=== PATIENT | female | born 1955 | race Caucasian/White ===

== ENCOUNTER 2016-06-14 23:30 | Emergency (ER) | payer OTHER ==
[~2016-06-14] VITALS: Ht 167.6 cm; Wt 99.0 kg
[2016-06-14 23:31] VITALS: BP 121/68; PULSE 68; RESP 16; TEMP 98.7; O2SAT 95
[2016-06-14] MEDS ORDERED: TIZA4CAP3 PO (23:42)
[2016-06-14] MEDS ORDERED: IBUP800T23 PO (23:42)
[2016-06-14] MEDS ORDERED: DOXE25CA2 PO (23:42)
[2016-06-14] MEDS ORDERED: SERT-132 PO (23:42)
[2016-06-14] MEDS ORDERED: OXYC1TAB36 PO (23:42)
[2016-06-14] MEDS ORDERED: LISI20TA PO (23:42)
[2016-06-15] MEDS ORDERED: ONDANSETRON ODT 4 MG TAB PO ONE
[2016-06-15] MEDS ORDERED: ZOFR4TAB3 SL (00:05)
--- NOTE | 2016-06-15 00:05 | PD ---
HPI Chief Complaint: GI Complaint Time Seen by Provider: 23:49 Travel History International Travel<30 days: No Contact w/Intl Traveler<30days: No Traveled to known affect area: No History of Present Illness HPI 60-year-old female complains of scratchy throat, fever chills, body ache, nausea. Patient states the symptoms started today. Patient denies any headache. Patient denies any visual change. Patient denies any neck pain. Patient denies any coughing congestion. Patient denies abdominal pain. Patient denies any vomiting or diarrhea. Patient denies dysuria or frequency. PFSH Past Medical History Cancer: Yes (BREAST) Chemotherapy: Yes Hypertension: Yes Medical other: Yes (R. CHRONIC FOOT PAIN) Radiation Therapy: Yes Tetanus Vaccination: Unknown Influenza Vaccination: Yes ?: Not Past Surgical History Mastectomy: Yes (RIGHT) Social History Alcohol Use: No Tobacco Use: No Substance Use: No Allergies-Medications (Allergen,Severity, Reaction): Coded Allergies: No Known Allergies (Unverified , 06/14/16) Reported Meds & Prescriptions Reported Meds & Active Scripts Active Reported Sertraline (Sertraline HCl) 50 Mg Tab 50 Mg PO DAILY Doxepin (Doxepin HCl) 25 Mg Cap 10 Mg PO HS Oxycodone-Acetaminophen 10-325 mg Tab 1 Tab PO Q4H PRN Lisinopril-Hctz 20-12.5 Mg Tab 1 Tab PO DAILY Tizanidine (Tizanidine HCl) 4 Mg Cap 4 Mg PO TID Ibuprofen 800 Mg Tab 800 Mg PO Q6HR PRN Review of Systems General / Constitutional: Positive: Fever, Chills Eyes: No: Visual changes HENT: No: Headaches Cardiovascular: No: Chest Pain or Discomfort Respiratory: No: Shortness of Breath Gastrointestinal: Positive: Nausea, No: Abdominal Pain Genitourinary: No: Dysuria Musculoskeletal: No: Pain Skin: No Rash Neurologic: No: Weakness Psychiatric: No: Depression Endocrine: No: Polydipsia Hematologic/Lymphatic: No: Easy Bruising Physical Exam Narrative GENERAL: Well-nourished, well-developed patient. SKIN: Focused skin assessment warm/dry. HEAD: Normocephalic. EYES: No scleral icterus. No injection or drainage. TM: Clear. Throat: Nonerythematous. NECK: Supple, trachea midline. No JVD or lymphadenopathy. No meningismus CARDIOVASCULAR: Regular rate and rhythm without murmurs, gallops, or rubs. RESPIRATORY: Breath sounds equal bilaterally. No accessory muscle use. GASTROINTESTINAL: Abdomen soft, non-tender, nondistended. MUSCULOSKELETAL: No cyanosis, or edema. BACK: Nontender without obvious deformity. No CVA tenderness. Neurologic exam normal. Data Data Last Documented VS Vital Signs Date Time Temp Pulse Resp B/P Pulse Ox O2 Delivery O2 Flow Rate FiO2 06/14/16 23:31 98.7 68 16 121/68 95 Room Air MDM Medical Decision Making Medical Screen Exam Complete: Yes Emergency Medical Condition: Yes Differential Diagnosis Differential diagnosis including viral syndrome, otitis media, pharyngitis, bronchitis, pneumonia, gastroenteritis. Narrative Course 60-year-old female with fever chills, body ache, nausea. Zofran 4 mg ODT. Diagnosis Primary Impression: Viral syndrome Patient Instructions: General Instructions Additional Instructions: Zofran needed. Tylenol for aching pain and fever. Follow-up with personal physician. Return if persistent problem or worse. Med/Other Pt SpecificInfo: Prescription(s) given Scripts Ondansetron Odt (Zofran Odt)4 Mg Tab4 Mg SL Q6HR PRN (Nausea/Vomiting) #10 TAB Prov:Kojo Callejas MD 06/15/16 Disposition: 01 DISCHARGE HOME Condition: Stable Kojo Callejas MD June 15, 2016 00:05
== END 2016-06-15 01:07 | disposition home or self-care (01) ==
LOC: NEPE 23:30
DX: B34.9 Viral infection, unspecified (principal)
CPT/HCPCS: 87081; 87880; 99283